=== PATIENT | male | born 1935 | race Caucasian/White ===

== ENCOUNTER → 2018-04-09 10:19 | Outpatient (CLI) | payer MEDICARE, OTHER | END | disposition home or self-care (01) | LOC: D.CT 10:19 | DX: R93.89 Abnormal findings on diagnostic imaging of other specified body structures (principal) ==

== ENCOUNTER → 2018-04-24 13:40 | Outpatient (CLI) | payer MEDICARE, OTHER ==
[2018-04-25 11:13] LABS: ANA REFLEX - DIRECT Negative (Negative)
== END | disposition home or self-care (01) ==
LOC: D.LAB 13:00 → D.RT 14:00
PROVIDERS: Internal Medicine Pulmonary Disease
DX: R93.89 Abnormal findings on diagnostic imaging of other specified body structures (principal)

== ENCOUNTER → 2018-07-31 09:39 | Outpatient (CLI) | payer MEDICARE, OTHER | END | disposition home or self-care (01) | LOC: D.RT 09:39 | PROVIDERS: ATTEND Internal Medicine Pulmonary Disease | DX: J84.9 Interstitial pulmonary disease, unspecified (principal) ==

== ENCOUNTER → 2018-11-05 09:22 | Outpatient (CLI) | payer MEDICARE, OTHER | END | disposition home or self-care (01) | LOC: D.RT 09:22 | PROVIDERS: ATTEND Internal Medicine Pulmonary Disease | DX: J84.9 Interstitial pulmonary disease, unspecified (principal) ==

== ENCOUNTER → 2019-05-01 13:10 | Outpatient (CLI) | payer MEDICARE, OTHER | END | disposition home or self-care (01) | LOC: D.RT 04-14 09:00 → D.CT 04-14 09:00 | PROVIDERS: ATTEND Internal Medicine Pulmonary Disease | DX: J84.9 Interstitial pulmonary disease, unspecified (principal) ==

== ENCOUNTER → 2020-01-09 11:54 | Outpatient (CLI) | payer MEDICARE, OTHER | END | disposition home or self-care (01) | LOC: D.LAB 11:54 | PROVIDERS: ATTEND Internal Medicine Pulmonary Disease | DX: Z11.59 Encounter for screening for other viral diseases (principal) ==

== ENCOUNTER → 2020-01-14 09:09 | Outpatient (CLI) | payer MEDICARE, OTHER | END | disposition home or self-care (01) | LOC: D.RT 12-17 10:30 → D.CT 12-17 10:30 → D.RT 12-17 11:00 | PROVIDERS: ATTEND Internal Medicine Pulmonary Disease | DX: J84.9 Interstitial pulmonary disease, unspecified (principal) ==

== ENCOUNTER → 2020-07-06 14:30 | Outpatient (CLI) | payer MEDICARE, OTHER | END | disposition home or self-care (01) | LOC: D.LABREF 14:30 | PROVIDERS: ATTEND Orthopaedic Surgery | DX: M19.011 Primary osteoarthritis, right shoulder (principal) ==

== ENCOUNTER 2020-07-27 05:25 | Inpatient (IN) | payer MEDICARE, OTHER ==
[2020-07-23 15:21] LABS: BILIRUBIN NEGATIVE (NEGATIVE); KETONE NEGATIVE (NEGATIVE); NITRITE NEGATIVE (NEGATIVE); UROBILINOGEN NORMAL mg/dL (< 2)
[2020-07-23 15:22] LABS: BASOPHILS 0.5 % (0-2); EOSINOPHILS 4.8 % (0-7); HEMATOCRIT 42.5 % (42.0-54.0); HEMOGLOBIN 14.1 g/dL (13.5-17.5); IMMATURE GRANULOCYTES 0.2 % (0-5); LYMPHOCYTE ABS# 1.15 10x3/uL (1.32-3.57); MCH 30.7 pg (26.0-34.0); MCHC 33.2 g/dL (31.0-37.0); MCV 92.6 fL (80.0-100.0); MEAN PLATELET VOLUME 9.3 fL (7.4-10.4); MONOCYTES 8.6 % (2-11); NEUTROPHIL ABS# 3.55 10x3/uL (1.78-5.38); NEUTROPHILS 64.9 % (40-80); PLATELET COUNT 136 10x3/uL (130-400); RBC 4.59 10x6/uL (4.20-6.10); RDW 14.4 % (11.5-14.5); WBC 5.5 10x3/uL (4.8-10.8)
[2020-07-23 15:28] LABS: APTT 32.3 SECONDS (22.8-39.4); INR 1.92 (0.85-1.17); PROTIME 20.4 SECONDS (11.6-15.0)
[2020-07-23 15:32] LABS: ANION GAP 11.7 mmol/L (8-16); CALCIUM 8.7 mg/dL (8.5-10.1); CARBON DIOXIDE 26.7 mmol/L (21.0-32.0); CREATININE - SERUM 1.2 mg/dL (0.6-1.3); POTASSIUM - SERUM 4.4 mmol/L (3.5-5.1)
[~2020-07-27] VITALS: Ht 170.2 cm; Wt 72.7 kg
[2020-07-27] VITALS (12 sets, daily range): BP systolic 95–152; BP diastolic 51–68; Ht 170.2 cm; Wt 72.7 kg
[~2020-07-27 05:25] MED LIST: ALBUTEROL SULF8.5 GM INH; BAYER CHEWABLE81 MG PO; CENTRUM MEN'S1 EACH PO; COREG12.5 MG PO; COZAAR100 MG PO; LIPITOR20 MG PO; MUCUNA PO; NORVASC10 MG PO; PROSCAR5 MG PO; WARFARIN SODIUM5 MG PO
[2020-07-27] MEDS ORDERED: VITAMIN C WIT1000 MG PO (06:16)
--- NOTE | 2020-07-27 07:14 | NUR ---
0624 DR. MORENO INFORMED OF ELEVATED PT RESULTS. REPEAT PT/PTT ORDERED. Charly SHANE CHANGE AGENT ORDRED REPEAT EKG. Sarah KIMBROUGH R.N. 0705 REPEAT LAB RESULTS PENDING. REPEAT EKG TO Charly SHANE CRNA WITH CONTINUED ARTIFACT RELATED TO TREMORS/PARKINSONS. Sarah KIMBROUGH R.N.
[2020-07-27 07:19] LABS: APTT 31.6 SECONDS (22.8-39.4); INR 1.4 (0.85-1.17); PROTIME 15.9 SECONDS (11.6-15.0)
--- NOTE | 2020-07-27 08:16 | NUR ---
CAUTERY PAD PLACED ON LEFT THIGH. PLASMA BLADE USED ON SETTING 6/8. AQUAMANTYS USED ON SETTING 170. CAUTERY PAD LOT#[id number] EXP. 12/28/2021
--- NOTE | 2020-07-27 09:17 | NUR ---
ANESTHESIA AT BEDSIDE.
[2020-07-27 10:43] LABS: BASOPHILS 0.4 % (0-2); HEMATOCRIT 38.2 % (42.0-54.0); HEMOGLOBIN 12.5 g/dL (13.5-17.5); IMMATURE GRANULOCYTES 0.4 % (0-5); LYMPHOCYTE ABS# 1.21 10x3/uL (1.32-3.57); LYMPHOCYTES 21.8 % (15-50); MCH 30.3 pg (26.0-34.0); MCHC 32.7 g/dL (31.0-37.0); MCV 92.5 fL (80.0-100.0); MEAN PLATELET VOLUME 9.3 fL (7.4-10.4); MONOCYTES 9.5 % (2-11); NEUTROPHIL ABS# 3.56 10x3/uL (1.78-5.38); NEUTROPHILS 63.9 % (40-80); PLATELET COUNT 126 10x3/uL (130-400); RBC 4.13 10x6/uL (4.20-6.10); RDW 14.4 % (11.5-14.5); WBC 5.6 10x3/uL (4.8-10.8)
[2020-07-27 10:51] LABS: ALBUMIN 3.5 g/dL (3.4-5.0); ANION GAP 10.7 mmol/L (8-16); BILIRUBIN - TOTAL 0.76 mg/dL (0.2-1.3); CALCIUM 8.6 mg/dL (8.5-10.1); CARBON DIOXIDE 26.3 mmol/L (21.0-32.0); CREATININE - SERUM 1.1 mg/dL (0.6-1.3); PROTEIN - SERUM 5.9 g/dL (6.4-8.2)
--- NOTE | 2020-07-27 15:49 | OP ---
PATIENT NAME: ADINA HUERTAS [place]ICAL RECORD: [id number] :34 LOCATION:D.M3 D.1211 ADMISSION DATE:07/27/20 SURGEON: ERICH MORENO DO DATE OF OPERATION: 07/27/2020 PROCEDURE PERFORMED: Right reverse total shoulder arthroplasty. PREOPERATIVE DIAGNOSIS: Right shoulder osteoarthritis. POSTOPERATIVE DIAGNOSIS: Right shoulder osteoarthritis. INDICATIONS: Mr. Huertas is an 85-year-old male, who has had right shoulder problems for quite some time. He has been getting injections, they eventually stopped working. He wanted something done surgically as he could not handle the pain and loss of motion anymore. He was [id number] arthritis with some medial wear of the glenoid and having observed that as well as a high riding humeral head, I told him a reverse was probably the best option for him. He was okay with that and was aware of the risks including infection, bleeding, fracture, damage to nerves or vessels in the area, continued pain, need for further surgery, loss of motion of the shoulder, blood clots and even and he signed a consent. SURGEON: Erich Moreno DO DESCRIPTION OF PROCEDURE: The patient was taken to the operative suite, laid in the supine position, given general anesthetic and intubated. He was given 900 mg of clindamycin preoperatively. He was then positioned in a beach chair position. Right shoulder was prepped and draped in sterile fashion. A timeout was performed and everyone was in agreeance with the correct side, site, patient and procedure. I then began by marking out the incision over the deltopectoral interval, made careful dissection down to the deltopectoral interval, took the cephalic vein laterally and released the proximal pec approximately 1 cm, tied the long head of the biceps tendon to the stump and then cut the long head of the biceps tendon proximal to that and then followed up into the joint. I then tagged the subscapularis tendon, peeled it off of the lesser tuberosity, exposed the humeral head, marked it and cut it, removed the humeral head and then exposed the glenoid, removed the labrum and what was left long head of the biceps tendon, put a centering pin in the glenoid, center of the glenoid and reamed over it. I then measured the depth to be 30 and we put a 30 screw in and then put 4 peripheral screws in, 30-mm in the anterior superior, 25s on the posterior superior and posterior inferior and then 20 in the anterior inferior. I then impacted on the +3 glenosphere, 36 incised with inferior offset. I then exposed the humerus and reamed up to a 16 and then broached to a 15 micro stem, reduced a +3 humeral tray, 36 standard tray, and it fit very well. Had good mobility and good tension on the conjoined tendon as well as the deltoid fibers and good range of motion. I then dislocated that and removed the trials, put the actual implants after irrigating, and then reduced that, and again had very minimal shucking and good tension on the conjoined tendon as well as the deltoid fibers. I then irrigated with 10% povidone iodine with 500 mL normal saline solution, let it sit for a few minutes and irrigated that out with a liter of normal saline. I then put in a drain, exiting posteriorly. Jermaine Rob, surgical assistant certified then put in [place] and vancomycin and tobramycin powder and closed the skin with 2-0 Vicryl in an inverted interrupted fashion, 4-0 Monocryl ran on the skin, Prineo glue placed on the skin and then Telfa and Tegaderm. I also secured the drain with Tegaderm. He was then OPERATIVE REPORT [id number] ADINA HUERTAS awakened, put in a sling and taken to recovery in stable condition. BLOOD LOSS: Approximately 200 mL. COMPLICATIONS: None. TRANSINT:[id number] Voice Confirmation ID: [id number] DOCUMENT ID: [id number] ERICH MORENO DO at 1549 CC: [id number] DICTATION DATE: 07/27/20 0859 BUSINESS DEVELOPMENT ENGINEER: 07/27/20 1448 ADM IN [facility] [address] [place] [address]
--- NOTE | 2020-07-27 19:42 | NUR ---
PT AWAKE, ASSESSMENT PER FLOW SHEET, VS OBTAINED, IV IN LEFT HAND INTACT WITH NO REDNESS OR EDEMA INFUSING VIA PUMP 1/2NS PER MD ORDERS, SEE EMAR, ANCEF HUNG IVPB PER MD ORDERS, SEE EMAR, SHOULDER DRESSING CDI WITH NO DRAINAGE NOTED, DAVOL DRAIN IN PLACE, COMPRESSED, PT REQUESTED AND SERVED FRESH H20, ENC TO DRINK, PT INFORMED IF HE DOES NOT VOID, I WILL HAVE TO DO AN IN AND OUT CATH, PT VERBALIZES UNDERSTANDING, PT STATES "I THINK I'LL DO BETTER IF I CAN STAND UP, INFORMED PT THAT I WILL BE BACK SHORTLY TO SEE IF HE WAS READY TO GET UP TO VOID, PT VERBALIZES UNDERSTANDING, PT'S AT BEDSIDE
--- NOTE | 2020-07-27 20:45 | NUR ---
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
--- NOTE | 2020-07-27 21:00 | NUR ---
THIS RN AND SYLVIE JAQUEZ, MISTI TO ROOM, GLYNN CATH ATTEMPTED WITH SLIGHT RESISTANCE, WILL HAVE ANOTHER NURSE TRY
--- NOTE | 2020-07-27 21:10 | NUR ---
ANGEL, RN DAY SHIFT NURSE TO ROOM, PLACED IN AND OUT CATH WITH IMMEDIATE RETURN OF DARK YELLOW URINE, REPORTS 650 MLS, PT CHAY WELL, PT INFORMED THAT HE WILL NEED TO TRY AND VOID AT LEAST BY 5AM, PT VERBALIZES UNDERSTANDING, DENIES NEEDS AT THIS TIME, PT'S AT BEDSIDE
--- NOTE | 2020-07-27 22:17 | NUR ---
SYLVIE JAQUEZ RN TO ROOM TO ADM 2100 MEDS, SEE EMAR
[2020-07-28 00:30] VITALS: BP 120/58
--- NOTE | 2020-07-28 00:30 | NUR ---
PT RESTING WITH EYES CLOSED, AROUSES TO SOFT VERBAL STIMULATION, VS OBTAINED, PT DENIES NEED FOR PAIN MED, REQUESTED AND SERVED FRESH H20, PT'S ASLEEP AT BEDSIDE
--- NOTE | 2020-07-28 02:59 | NUR ---
PT AWAKE, ADM ANCEF IVPB PER MD ORDERS, SEE EMAR, PT REQUESTS TO TRY AND VOID, PT UP TO BR WITH ASSISTANCE, PT TO COMMODE, REQUESTS TO SIT ON COMMODE FOR A SHORT PERIOD OF TIME, PT INST ON AND VERBALIZES UNDERSTANDING OF NOT GETTING UP BY SELF AND USING THE CALL LIGHT IN THE BR
--- NOTE | 2020-07-28 03:13 | NUR ---
PT CONTINUES SITTING ON COMMODE, PT STATES "I BET IF I COULD DRINK A DIET COKE, THAT WILL HELP ME", DIET COKE PROVIDED
--- NOTE | 2020-07-28 03:30 | NUR ---
PT CONTINUES SITTING ON COMMODE, STILL UNABLE TO VOID, CONTINUES REQUESTING TO SIT ON COMMODE
[2020-07-28 03:40] VITALS: BP 146/58
--- NOTE | 2020-07-28 03:40 | NUR ---
PT STILL UNABLE TO VOID, PT BACK TO BED, VS OBTAINED, PUMPS CLEARED, DAVOL DRAIN EMPTIED, PT C/O INC PAIN, RATES PAIN 410, WILL ADM PAIN MED
--- NOTE | 2020-07-28 03:55 | NUR ---
ADM PAIN MED PER MD ORDERS, SEE EMAR, PT DENIES FURTHER NEEDS, COFFEE SERVED TO S/O
--- NOTE | 2020-07-28 05:07 | NUR ---
PT RESTING WITH EYES CLOSED, AROUSES TO SOFT VERBAL STIMULATION, ADM 0600 MED PER MD ORDERS, SEE EMAR, BLADDER SCANNED PT, 598 MLS NOTED, WILL NOTIFY ROBERT WALDRON APN
--- NOTE | 2020-07-28 05:12 | NUR ---
PAGED ROBERT WALDRON APN
--- NOTE | 2020-07-28 05:18 | NUR ---
ROBERT WALDRON APN CALLED UNIT, REPORT OF PT UNABLE TO VOID, BLADDER SCANNED X2, WITH REPORTED AMOUNTS NOTES, IN AND OUT CATH DONE AT 2109 WITH 650 MLS OF DARK YELLOW URINE, ORDERS RECEIVED TO PLACE A GLYNN AT THIS TIME
--- NOTE | 2020-07-28 05:30 | NUR ---
THIS RN AND SYLVIE JAQUEZ RN ATTEMPTED GLYNN VIA STERILE TECHNIQUE WITH NO SUCCESS, WILL HAVE ANOTHER NURSE PLACE
--- NOTE | 2020-07-28 06:00 | NUR ---
CUDET CATH PLACED VIA STERILE TECHNIQUE PER MISTI HANSEN CHARGE NURSE FROM MED SURGE, WITH IMMEDIATE RETURN OF DARK YELLOW URINE, PT CHAY WELL
[2020-07-28 06:07] LABS: BASOPHILS 0.2 % (0-2); EOSINOPHILS 0.5 % (0-7); HEMATOCRIT 36.3 % (42.0-54.0); HEMOGLOBIN 11.7 g/dL (13.5-17.5); IMMATURE GRANULOCYTES 0.3 % (0-5); LYMPHOCYTE ABS# 1.09 10x3/uL (1.32-3.57); LYMPHOCYTES 10.5 % (15-50); MCH 30.1 pg (26.0-34.0); MCHC 32.2 g/dL (31.0-37.0); MCV 93.3 fL (80.0-100.0); MEAN PLATELET VOLUME 9.2 fL (7.4-10.4); MONOCYTES 11.6 % (2-11); NEUTROPHILS 76.9 % (40-80); PLATELET COUNT 138 10x3/uL (130-400); RBC 3.89 10x6/uL (4.20-6.10); RDW 14.7 % (11.5-14.5)
[2020-07-28 06:22] LABS: WBC 10.4 10x3/uL (4.8-10.8)
[2020-07-28 06:31] LABS: ALBUMIN 3.2 g/dL (3.4-5.0); ANION GAP 9.9 mmol/L (8-16); BILIRUBIN - TOTAL 0.58 mg/dL (0.2-1.3); CALCIUM 8.6 mg/dL (8.5-10.1); CARBON DIOXIDE 24.5 mmol/L (21.0-32.0); POTASSIUM - SERUM 4.4 mmol/L (3.5-5.1); PROTEIN - SERUM 5.9 g/dL (6.4-8.2)
[2020-07-28 06:33] LABS: CREATININE - SERUM 1.6 mg/dL (0.6-1.3)
[2020-07-28 07:30] VITALS: BP 138/49
[2020-07-28 10:23] LABS: INR 1.32 (0.85-1.17); PROTIME 15.2 SECONDS (11.6-15.0)
[2020-07-28 12:00] VITALS: BP 146/63
[2020-07-28 16:10] VITALS: BP 149/56
--- NOTE | 2020-07-28 20:00 | NUR ---
PT RESTING WITH EYES CLOSED, RESP QUIET, NO DISTRESS NOTED, LEFT UNDISTURBED AT THIS TIME
[2020-07-28 21:31] VITALS: BP 116/53
--- NOTE | 2020-07-28 21:31 | NUR ---
ASSESSMENT PER FLOW SHEET, VS OBTAINED, IV IN LEFT HAND INTACT WITH NO REDNESS OR EDEMA INFUSING 1/2 NS PER MD ORDERS, INC ON RIGHT SHOULDER WITH DRESSING INTACT, DAVOL DRAIN IN PLACE, GLYNN CATH INTACT DRAINING DARK YELLOW URINE, PT DENIES FLATUS, ADM 2100 MEDS AND PAIN ME PER MD ORDERS, SEE EMAR, ASSISTED PT WITH ORAL AND FACIAL CARE, PT DENIES FURTHER NEEDS, FALL PRECAUTIONS IN PLACE
--- NOTE | 2020-07-28 22:30 | NUR ---
PT RESTING WITH EYES CLOSED, RESP QUIET, NO DISTRESS NOTED, LEFT UNDISTURBED AT THIS TIME
--- NOTE | 2020-07-29 00:01 | NUR ---
PT AWAKE, VS OBTAINED, NEW BAG OF 1/2NS HUNG PER MD ORDERS, SEE EMAR, PT DENIES NEEDS OR PAIN AT THIS TIME
--- NOTE | 2020-07-29 02:23 | NUR ---
PT RESTING WITH EYES CLOSED, RESP QUIET, NO DISTRESS NOTED, LEFT UNDISTURBED AT THIS TIME
[2020-07-29 04:58] VITALS: BP 177/69
--- NOTE | 2020-07-29 04:58 | NUR ---
PT AWAKE, VS OBTAINED, PUMPS CLEARED, GLYNN CATH AND DAVOL DRAIN EMPTIED, PT C/O PAIN, ADM PAIN MED PER MD ORDERS, SEE EMAR, FRESH H20 SERVED, PT USING I.S. WITH GOOD EFFORT, DENIES FURTHER NEEDS
--- NOTE | 2020-07-29 06:05 | NUR ---
PT AWAKE, ADM PROTONIX PO PER MD ORDERS, SEE EMAR, PT DENIES NEEDS OR PAIN AT THIS TIME
--- NOTE | 2020-07-29 07:30 | NUR ---
AWAKE AND ALERT. ORIENTED X3. NO C/O AT THIS TIME. LUNGS ARE CLEAR BILATERALLY, NO COUGH NOTED. SKIN IS INTACT WITHOUT REDNESS EXCEPT INCISION TO RIGHT SHOULDER WHICH HAS A DRY INTACT DRESSING IN PLACE. IV TO LEFT HAND IS INTACT WITHOUT REDNESS AT INSERTION SITE. GLYNN CLAMPED AT THIS TIME. PATENT WITH CLEAR YELLOW URINE. DENIES NEEDS.
[2020-07-29] MEDS ORDERED: HYDROCODON-ACE1 EA10 PO (07:35)
[2020-07-29 08:00] LABS: BASOPHILS 0.2 % (0-2); HEMATOCRIT 36.5 % (42.0-54.0); HEMOGLOBIN 11.6 g/dL (13.5-17.5); IMMATURE GRANULOCYTES 0.2 % (0-5); LYMPHOCYTE ABS# 1.24 10x3/uL (1.32-3.57); LYMPHOCYTES 15.3 % (15-50); MCHC 31.8 g/dL (31.0-37.0); MCV 94.3 fL (80.0-100.0); MEAN PLATELET VOLUME 9.9 fL (7.4-10.4); MONOCYTES 13.7 % (2-11); NEUTROPHIL ABS# 5.47 10x3/uL (1.78-5.38); NEUTROPHILS 67.6 % (40-80); PLATELET COUNT 115 10x3/uL (130-400); RBC 3.87 10x6/uL (4.20-6.10); RDW 14.6 % (11.5-14.5); WBC 8.1 10x3/uL (4.8-10.8)
[2020-07-29 08:15] VITALS: BP 134/61
[2020-07-29 08:43] LABS: ALBUMIN 2.8 g/dL (3.4-5.0); ANION GAP 11.8 mmol/L (8-16); BILIRUBIN - TOTAL 0.83 mg/dL (0.2-1.3); CALCIUM 7.8 mg/dL (8.5-10.1); CARBON DIOXIDE 25.7 mmol/L (21.0-32.0); CREATININE - SERUM 1.1 mg/dL (0.6-1.3); POTASSIUM - SERUM 4.5 mmol/L (3.5-5.1); PROTEIN - SERUM 5.4 g/dL (6.4-8.2)
--- NOTE | 2020-07-29 09:00 | NUR ---
ATE MOST OF BREAKFAST. TOOK AM MEDS WITHOUT DIFFICULTY. DENIES NEEDS.
[2020-07-29 09:17] LABS: INR 1.53 (0.85-1.17)
--- NOTE | 2020-07-29 10:00 | NUR ---
GLYNN OPENED TO DRAIN AFTER PATIENT C/O FEELING FULL. DRAINED 600cc CLEAR YELLOW URINE. RECLAMPED GLYNN.
--- NOTE | 2020-07-29 11:00 | NUR ---
DAVOL DRAIN D/C. DRESSING TO RIGHT SHOULDER CHANGED AT THIS TIME. NO C/O PAIN OR DISCOMFORT WITH EITHER.
[2020-07-29 12:07] VITALS: BP 148/60
--- NOTE | 2020-07-29 12:30 | NUR ---
LUNCH SERVED IN ROOM. DENIES NEEDS.
--- NOTE | 2020-07-29 13:15 | NUR ---
NO SENSATION OF NEED TO VOID. GLNYN UNCLAMPED AND DRAINED 400cc CLEAR YELLOW URINE AT THIS TIME.
--- NOTE | 2020-07-29 15:14 | NUR ---
WALKED 200 FT WITH LOW MOD ASSIT USED GT BELT
--- NOTE | 2020-07-29 15:35 | NUR ---
DISCHARGED TO HOME AMBULATORY WITH . GLYNN CARE AND USE INSTRUCTIONS GIVEN TO AND PATIENT. ALL QUESTIONS ANSWERED. PATIENT AND VERBALIZED UNDERSTANDING OF SAME. DISCHARGE INSTRUCTIONS GIVEN BOTH VERBALLY AND WRITTEN. ALLL QUESTIONS ANSWERED. PATIENT AND VERBALIZED UNDERSTANDING OF SAME. IV TO LEFT HAND D/C WITH CATHETER INTACT. NEEDED PRESCRIPTIONS GIVEN TO PATIENT. ALL BELONGINGS WITH PATIENT.
== END 2020-07-29 15:35 | disposition home or self-care (01) | DRG 483 ==
LOC: D.OPS 05:25 → D.M3 09:02 → D.OPS 13:25 → D.M3 13:25 → OBSVTIME 13:25 → D.M3 07-28 10:35
PROVIDERS: Emergency Medicine; ADMIT Orthopaedic Surgery; ATTEND Orthopaedic Surgery
PROC: 0RRJ00Z Replacement of Right Shoulder Joint with Reverse Ball and Socket Synthetic Substitute, Open Approach (ICD-10-PCS; principal; 2020-07-27 07:15)
DX: M19.011 Primary osteoarthritis, right shoulder (principal); Z79.01 Long term (current) use of anticoagulants; G20 Parkinson's disease; I10 Essential (primary) hypertension; E78.5 Hyperlipidemia, unspecified; J84.10 Pulmonary fibrosis, unspecified; K21.9 Gastro-esophageal reflux disease without esophagitis; N40.0 Benign prostatic hyperplasia without lower urinary tract symptoms; G89.29 Other chronic pain; M54.9 Dorsalgia, unspecified; Z85.51 Personal history of malignant neoplasm of bladder